=== PATIENT | male | born 1950 | race Caucasian/White ===

== ENCOUNTER → 2017-07-24 | Outpatient (CLI) | payer MEDICARE, BC ==
--- NOTE | 2017-08-05 11:11 | ONC ---
[place] [address] RADIATION ONCOLOGY NOTE Name: KIMANICHAVEZ Apolinar Room: [facility]#: [id number] Admission: 07/24/17 Attend Phys: Chase Wilburn MD Discharge: Date of : 48 Report #: [id number] THIS REPORT FOR: //name// CC: Lalo Pope MD DATE OF SERVICE: 07/24/2017 REFERRING PHYSICIANS: Lalo Shea MD; Sivan Pope MD; Jean Wilson MD; and Sal Pérez MD. [facility] phone is [phone]. 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 He received definitive radiation therapy. The radiation therapy was completed on 04/28/2015. He also had a melanoma resected from the right shoulder on 12/20/2015 which had a depth of about 0.35 mm and the margins were not involved with cancer. 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 He had a history of right breast cancer after mastectomy in 1998. INTERVAL NOTE: The patient's voice quality is good. He is eating well. He is swallowing well. He denied having any palpable masses involving the right shoulder. He denied having any palpable masses involving the right chest wall. He denied having any lesions involving the cheek. MEDICATIONS: The patient is taking 125 mcg of levothyroxine per day. SOCIAL HISTORY: Cigarettes: The patient does not smoke cigarettes. REVIEW OF SYSTEMS: RESPIRATORY: Breathing was fine. He was not short of breath. GASTROINTESTINAL: He has a good appetite. PHYSICAL EXAMINATION: VITAL SIGNS: The patient weighed 224.6 pounds on 07/24/2017 and 223.2 pounds on 01/18/2017. On 07/24/2017, blood pressure was 131/82, pulse 76. LYMPH NODES: He had no palpable cervical or supraclavicular lymphadenopathy. HEAD, EYES, EARS, NOSE AND THROAT: Mouth had no suspicious visible lesions. There were no suspicious palpable lesions in the mouth. On nasopharyngolaryngoscopy, after administration of a small amount of 2% viscous lidocaine orally and 2% viscous lidocaine into the left nostril, [place] [address] RADIATION ONCOLOGY NOTE Name: CHAVEZ HARMAN Room: [facility]#: [id number] Admission: 07/24/17 Attend Phys: Chase Wilburn MD Discharge: Date of : 48 Report #: [id number] visible lesions in the nasopharynx. There were no visible lesions in the posterior oropharynx. The true vocal cords were normally mobile bilaterally without any visible lesions. HEART: Had a regular rate and rhythm without murmur. LUNGS: were clear to auscultation. CHEST WALL: There were no palpable masses in the right chest wall area. There were no palpable masses in the left chest wall area. SKIN: There were no suspicious visible lesions in the shoulder areas or cheek areas. LABORATORY DATA: The patient had a TSH done on 06/06/2017, which was 2.834, which was within normal limits on his present dose of 125 mcg of levothyroxine. ASSESSMENT AND PLAN: 1. History of laryngeal cancer- There is no evidence of laryngeal cancer at this time. The patient was asked to schedule a follow up appointment to see me in about 6 months. 2. Hypothyroidism- The patient's TSH is within normal limits on his present dose of 125 mcg of levothyroxine per day. He was given a refill for his 125 mcg of levothyroxine. He also had a requisition written for TSH in about 6 months and he was asked to schedule a follow up appointment to see me afterwards. 3. History of resected melanoma from the right shoulder- When it was resected, the melanoma had a depth of about 0.35 mm and the margins were not involved with cancer. The resection was on 12/20/2015. The patient had no suspicious palpable masses involving the right shoulder. 4. 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 5. History of right breast cancer after mastectomy in 1998- He had no palpable masses in the right chest wall area or the left chest wall area. There was no axillary lymphadenopathy. There is no evidence of breast cancer. He was asked to schedule a follow up appointment with me in about 6 months. Thank you for allowing me to participate in the care of this patient. <ELECTRONICALLY SIGNED> By: Chase Wilburn MD 08/05/17 1111 1035 1120Chase Wilburn MD /nt
--- NOTE | 2017-08-05 11:11 | ONC ---
[place] [address] RADIATION ONCOLOGY NOTE Name: CHAVEZ HARMAN Room: [facility]#: [id number] Admission: 07/24/17 Attend Phys: Chase Wilburn MD Discharge: Date of : 48 Report #: [id number] THIS REPORT FOR: //name// CC: Lalo Pope MD DATE OF PROCEDURE: 07/24/2017 REFERRING PHYSICIANS: Include: 1. Lalo Shea MD 2. Sivan Pope MD 3. Sal Pérez MD 4. Jean Wilson MD [facility] phone is [phone]. 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 He received definitive radiation therapy. The radiation therapy was completed on 04/28/2015. PROCEDURE: Nasopharyngolaryngoscopy. FINDINGS: On nasopharyngolaryngoscopy, after the patient was given a small amount of 2% viscous lidocaine orally and 2% viscous lidocaine administered in the left nostril using a cotton swab, there were no visible lesions in the nasopharynx. There were no visible lesions in the posterior oropharynx. The true vocal cords were normally mobile bilaterally without any visible lesions. There was no evidence of laryngeal cancer. Thank you for allowing me to participate in the care of this patient. <ELECTRONICALLY SIGNED> By: Chase Wilburn MD 08/05/17 1111 1025 1048Chase Wilburn MD /nt
== END ==
LOC: M.RTH 02:09
DX: Z08 Encounter for follow-up examination after completed treatment for malignant neoplasm (principal); E03.9 Hypothyroidism, unspecified; Z85.21 Personal history of malignant neoplasm of larynx; Z85.3 Personal history of malignant neoplasm of breast

== ENCOUNTER → 2018-01-03 | Outpatient (CLI) | payer MEDICARE, BC ==
--- NOTE | 2018-01-12 12:46 | ONC ---
[place] [address] RADIATION ONCOLOGY NOTE Name: CHAVEZ HARMAN Room: [facility]#: [id number] Admission: 01/03/18 Attend Phys: Chase Wilburn MD Discharge: Date of : 48 Report #: [id number] THIS REPORT FOR: //name// CC: Lalo Pope MD DATE OF PROCEDURE: 01/03/2018 REFERRING PHYSICIANS: Lalo Shea MD; Jean Wilson MD; Sal Pérez MD and Sivan Pope MD [facility] phone is [phone]. 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 He received definitive radiation therapy. The radiation therapy was completed on 04/28/2015. PROCEDURE: Nasopharyngolaryngoscopy. FINDINGS: On nasopharyngolaryngoscopy, after the patient was given a small amount of 2% viscous lidocaine orally and 2% viscous lidocaine administered in the left nostril using a cotton swab, there were no visible lesions in the nasopharynx. There were no visible lesions in the posterior oropharynx. The true vocal cords were normally mobile bilaterally without any visible lesions. There was no evidence of laryngeal cancer. Thank you for allowing me to participate in the care of this patient. <ELECTRONICALLY SIGNED> By: Chase Wilubrn MD 01/12/18 1246 1256 0006Chase Wilburn MD /nt
--- NOTE | 2018-01-12 13:00 | ONC ---
[place] [address] RADIATION ONCOLOGY NOTE Name: KIMANICHAVEZ Apolinar Room: [facility]#: [id number] Admission: 01/03/18 Attend Phys: Chase Wilburn MD Discharge: Date of : 48 Report #: [id number] THIS REPORT FOR: //name// CC: Lalo Pope MD DATE OF SERVICE: 01/03/2018 RADIATION ONCOLOGY FOLLOWUP NOTE REFERRING PHYSICIANS: Lalo Shea MD; Jean Wilson MD; Sal Pérez MD and Sivan Pope MD. [facility] phone is [phone]. 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 He received definitive radiation therapy. The radiation therapy was completed on 04/28/2015. He also had a melanoma resected from the right shoulder on 12/20/2015 which had a depth of about 0.35 mm and the margins were not involved with cancer. 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 He also had a history of right breast cancer after mastectomy in 1998. INTERVAL NOTE: The patient's voice quality is good. He denied having any areas of concern on his right shoulder. He denied having any palpable masses involving the right chest wall. He denied having lesions in his mouth. MEDICATIONS: He takes 125 mcg of levothyroxine per day. SOCIAL HISTORY: Cigarettes: The patient does not smoke cigarettes. REVIEW OF SYSTEMS: RESPIRATORY: The patient's breathing was fine. He was not short of breath. GASTROINTESTINAL: He has a good appetite. PHYSICAL EXAMINATION: VITAL SIGNS: The patient weighed 225.8 pounds on 01/03/2018 and he was 224.6 pounds on 07/24/2017. LYMPH NODES: He had no palpable cervical or supraclavicular lymphadenopathy. HEAD, EYES, EARS, NOSE AND THROAT: Mouth had no suspicious visible lesions or suspicious palpable lesions in the mouth. On nasopharyngolaryngoscopy, after administration of a small amount of 2% viscous lidocaine orally and 2% [place] [address] RADIATION ONCOLOGY NOTE Name: CHAVEZ HARMAN Room: [facility]#: [id number] Admission: 01/03/18 Attend Phys: Chase Wilburn MD Discharge: Date of : 48 Report #: [id number] lidocaine to the left nostril, there were no visible lesions in the posterior pharynx. The true vocal cords were normally mobile bilaterally without any visible lesions. MUSCULOSKELETAL: Right shoulder had no palpable masses. Chest wall, there were no palpable masses in the right chest wall. There were no palpable masses in the left chest area. There was no palpable axillary lymphadenopathy on the right side or the left side. HEART: Had a regular rate and rhythm without murmur. LUNGS: were clear to auscultation. LABORATORY DATA: The patient's TSH was 3.88, which was within normal limits on his present dose of 125 mcg of levothyroxine per day. ASSESSMENT AND PLAN: 1. History of laryngeal cancer- There is no evidence of laryngeal cancer at this time. The patient was asked to schedule a follow up appointment to see me in about 6 months. 2. Hypothyroidism. The patient's TSH is within normal limits on his present dose of 125 mcg of levothyroxine per day. He was given a refill for his 125 mcg of levothyroxine. He was also given a requisition for TSH in about 6 months and the patient was asked to schedule a follow up appointment to see me afterwards. 3. History of resected melanoma from the right shoulder- There was no evidence of any lesion at that time. He says he is going to be seeing his sap basis administrator in about 2 weeks for a skin check. He was asked to schedule a follow up appointment to see me in about 6 months. 4. 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 So there is no evidence of disease. 5. History of right breast cancer after mastectomy in 1998- He had no evidence of breast cancer at this time. He was asked to schedule a follow up appointment to see me in about 6 months. Thank you for allowing me to participate in the care of this patient. <ELECTRONICALLY SIGNED> By: Chase Wilburn MD 01/12/18 1300 1301 2348Chase Wilburn MD /nt
== END | disposition home or self-care (01) ==
LOC: M.RTH 02:33
DX: Z85.21 Personal history of malignant neoplasm of larynx (principal); E03.9 Hypothyroidism, unspecified; Z85.828 Personal history of other malignant neoplasm of skin; Z88.0 Allergy status to penicillin

== ENCOUNTER → 2018-07-09 | Outpatient (CLI) | payer MEDICARE, BC ==
--- NOTE | ~2018-07-09 | ONC ---
[place] [address] RADIATION ONCOLOGY NOTE Name: KIMANICHAVEZ Apolinar Room: [facility]#: [id number] Admission: 07/09/18 Attend Phys: Chase Wilburn MD Discharge: Date of : 48 Report #: [id number] THIS REPORT FOR: //name// CC: Lalo Wilburn DATE OF SERVICE: 07/09/2018 REFERRING PHYSICIANS: Lalo Shea MD; Jean Wilson MD from Dermatology, Sal Pérez MD and Sivan Pope MD. [facility] phone is [phone]. PRIMARY SITE AND HISTOPATHOLOGY: The patient has a stage 1 moderately differentiated squamous cell carcinoma of the larynx. He received definitive radiation therapy. The radiation therapy was completed on 04/28/2015. He also had a melanoma resected from the right shoulder on 12/20/2015, which had a depth of about 0.35 mm and the margins were not involved with cancer. He had a squamous cell carcinoma in situ also resected from the right cheek. He also has a history of right breast cancer after mastectomy in 1998. INTERVAL NOTE: The patient's voice quality is good. He is able to eat a regular diet. He indicates he has no swallowing problems. He says that he sees his cuff setter lockstitch twice a year for skin check to make sure there is no other recurrence of the skin cancer or melanoma. He denied having any palpable masses in the chest area. MEDICATIONS: Levothyroxine 125 mcg per day, he also takes Zantac as needed and vitamin C. SOCIAL HISTORY: Cigarettes: The patient does not smoke cigarettes. REVIEW OF SYSTEMS: RESPIRATORY: The patient's breathing was normal. He was not short of breath. GASTROINTESTINAL: He has a good appetite. PHYSICAL EXAMINATION: VITAL SIGNS: The patient weighed 224.6 pounds today, he was 225.8 pounds on 01/03/2018. On 07/09/2018, blood pressure is 144/91, oxygen saturation 95%, pulse 67, respirations 18. LYMPH NODES: He had no palpable cervical, supraclavicular or axillary lymphadenopathy. HEAD, EYES, EARS, NOSE AND THROAT: Mouth had no suspicious visible lesions or suspicious palpable lesions. On nasopharyngolaryngoscopy, after administration of a small amount of 2% viscous lidocaine orally and 2% viscous lidocaine to the left nostril, there were no visible lesions in the nasopharynx [place] [address] RADIATION ONCOLOGY NOTE Name: CHAVEZ HARMAN Room: [facility]#: [id number] Admission: 07/09/18 Attend Phys: Chase Wilburn MD Discharge: Date of : 48 Report #: [id number] oropharynx. The true vocal cords were normally mobile bilaterally without any visible lesions. MUSCULOSKELETAL: The right shoulder had no palpable mass. CHEST WALL: There were no palpable masses in the right chest wall. There were no palpable masses in the left chest area and there was no palpable axillary lymphadenopathy. HEART: Had a regular rate and rhythm without murmur. LUNGS: Clear to auscultation. LABORATORY DATA: The patient had a TSH on 04/23/2018, which was 3.02, which was within normal limits on his present dose of 125 mcg of levothyroxine per day. His sodium was 140, potassium 3.8, BUN was 15, creatinine 0.96. ASSESSMENT AND PLAN: 1. History of laryngeal cancer. There is no evidence of laryngeal cancer at this time. The patient was asked to schedule a followup appointment to see me in about 6 months. 2. Hypothyroidism. The patient's TSH was within normal limits on his present dose of 125 mcg of levothyroxine per day. He was given a refill for his 125 mcg levothyroxine and he was also given a requisition for TSH in about 6 months. He is asked to follow up with me afterwards. 3. History of resected melanoma of the right shoulder. There was no evidence of any lesion at this time. He says he sees his cuff setter lockstitch about twice a year for skin check. 4. Squamous cell carcinoma in situ of the right cheek. There is no evidence of any lesions in that area and again he sees his cuff setter lockstitch about twice a year for skin check and he was asked to schedule a followup appointment to see me in about 6 months. 5. History of right breast cancer after mastectomy in 1998. There is no evidence of breast cancer at this time. He is asked to schedule a followup appointment to see me in about 6 months. Thank you for allowing me to participate in the care of this patient. By: [id number] Wilburn MD /yajaira
--- NOTE | ~2018-07-09 | ONC ---
[place] [address] RADIATION ONCOLOGY NOTE Name: KIMANICHAVEZ Apolinar Room: [facility]#: [id number] Admission: 07/09/18 Attend Phys: Cahse Wilburn MD Discharge: Date of : 48 Report #: [id number] THIS REPORT FOR: //name// CC: Lalo Wilburn DATE OF SERVICE: 07/09/2018 REFERRING PHYSICIANS: Lalo Shea MD; Jean Wilson MD, from Dermatology; Sal Pérez MD and Sivan Pope MD. [facility] phone is [phone]. PRIMARY SITE AND HISTOPATHOLOGY: The patient has stage I, moderately differentiated squamous cell carcinoma of the larynx, received definitive radiation therapy. The radiation therapy was completed on 04/28/2015. PROCEDURE: Nasopharyngolaryngoscopy. FINDINGS: On nasopharyngolaryngoscopy, after the patient was given a small amount of 2% viscous lidocaine orally and 2% viscous lidocaine in the left nostril using cotton swab, there were no visible lesions in the nasopharynx and no visible lesions in the posterior oropharynx. True vocal cords were normally mobile bilaterally without any visible lesions. There was no evidence of laryngeal cancer. Thank you for allowing me to participate in the care of this patient. By: 1026 140MD perico Keene
== END ==
LOC: M.RTH 04:33
DX: Z08 Encounter for follow-up examination after completed treatment for malignant neoplasm (principal); E03.9 Hypothyroidism, unspecified; C44.329 Squamous cell carcinoma of skin of other parts of face; Z85.21 Personal history of malignant neoplasm of larynx; Z85.3 Personal history of malignant neoplasm of breast; Z85.820 Personal history of malignant melanoma of skin

== ENCOUNTER → 2019-01-16 | Outpatient (CLI) | payer MEDICARE, BC ==
--- NOTE | ~2019-01-16 | ONC ---
[place] [address] RADIATION ONCOLOGY NOTE Name: CHAVEZ HARMAN Room: [facility]#: [id number] Admission: 01/16/19 Attend Phys: Chase Wilburn MD Discharge: Date of : 48 Report #: [id number] THIS REPORT FOR: //name// CC: Lalo Wilburn DATE OF SERVICE: 01/16/2019 RADIATION ONCOLOGY FOLLOWUP NOTE REFERRING PHYSICIANS: Lalo Shea MD; Jean Wilson MD; Sal Pérez MD; Sivan Pope MD. [facility] phone number is [phone]. PRIMARY SITE AND HISTOPATHOLOGY: The patient has stage 1 moderately differentiated squamous cell carcinoma of the larynx. He received definitive radiation therapy. The radiation therapy was completed on 04/28/2015. He also had a melanoma resected from the right shoulder on 12/20/2015, which had a bit depth of about 0.35 mm with clear margins after resection. He has a squamous cell carcinoma in situ resected from the right cheek around 2014. He also has a history of right breast cancer after mastectomy in 1998. INTERVAL NOTE: The patient's voice quality is good. He is able to eat a regular diet. He says he can swallow well. He denied having any recurrence, denied having any lesions in the area of the shoulder. He did not have any palpable masses in the chest area. MEDICATIONS: A 125 mcg of levothyroxine per day. He also takes Zantac as needed. SOCIAL HISTORY: Cigarettes: The patient does not smoke cigarettes. REVIEW OF SYSTEMS: RESPIRATORY: The patient's breathing was normal. He was not short of breath. GASTROINTESTINAL: He has a good appetite. PHYSICAL EXAMINATION: VITAL SIGNS: The patient weighed 219.2 pounds on 01/16/2019, 224.6 pounds on 07/09/2018, and on 01/16/2019, blood pressure is 134/87, pulse 63, respirations 18, oxygen saturation 100 percent. LYMPH NODES: He had no palpable cervical or supraclavicular or axillary lymphadenopathy. HEAD, EYES, EARS, NOSE, AND THROAT: Mouth had no suspicious visible lesions or suspicious palpable lesions. On nasopharyngolaryngoscopy after administration of a small amount of 2% viscous lidocaine orally and 2% [place] [address] RADIATION ONCOLOGY NOTE Name: CHAVEZ HARMAN Room: [facility]#: [id number] Admission: 01/16/19 Attend Phys: Chase Wilburn MD Discharge: Date of : 48 Report #: [id number] left nostril, there were no visible lesions in the nasopharynx or posterior oropharynx. True vocal cords are normally mobile bilaterally without any visible lesions. MUSCULOSKELETAL: The right shoulder had palpable masses. CHEST WALL: There were no palpable masses in the right chest wall or the left breast area. HEART: Had a regular rate and rhythm without murmur. LUNGS: Clear to auscultation. LABORATORY DATA: From 10/22/2018, TSH was 2.79 which is within normal limits on his present dose of 125 mcg of levothyroxine per day. ASSESSMENT AND PLAN: 1. History of laryngeal cancer. There is no evidence of laryngeal cancer at this time. The patient was asked to follow up with me in about 8 months. 2. Hypothyroidism. The patient's TSH was within normal limits on his present dose of 125 mcg of levothyroxine per day. He was given a refill for his 125 mcg of levothyroxine and a requisition for a TSH in about 8 months. He is asked to schedule a followup appointment to see me afterwards. 3. History of resected melanoma of the right shoulder. There is no evidence of any lesion at this time and he says he sees his manager group home about twice a year for skin check. 4. Squamous cell carcinoma in situ of right cheek. There is no evidence of any lesions in that area and again he sees his manager group home about twice a year for that area for that issue. 5. History of right breast cancer after mastectomy in 1998. There is no evidence of breast cancer at this time. He is asked to schedule a followup appointment to see me in about 8 months. Thank you for allowing me to participate in the care of this patient. By: [id number] [id number] Wilburn MD /yajaira
--- NOTE | ~2019-01-16 | ONC ---
[place] [address] RADIATION ONCOLOGY NOTE Name: CHAVEZ HARMAN Room: [facility]#: [id number] Admission: 01/16/19 Attend Phys: Chase Wilburn MD Discharge: Date of : 48 Report #: [id number] THIS REPORT FOR: //name// CC: Lalo Wilburn DATE OF SERVICE: 01/16/2019 REFERRING PHYSICIANS: Dr Shea; Dr. Medina; Sal Pérez MD; Sivan Pope MD [facility] phone is [phone]. PRIMARY SITE AND HISTOPATHOLOGY: The patient has stage 1 moderately differentiated squamous cell carcinoma of the larynx and received definitive radiation therapy. The radiation therapy was completed on 04/28/2015. PROCEDURE: Nasopharyngolaryngoscopy. FINDINGS: On nasopharyngolaryngoscopy, after the patient was given a small amount of 2% viscous lidocaine orally, 2% viscous lidocaine to left nostril using cotton swab, there were no visible lesions in the nasopharynx, no visible lesions in the posterior pharynx. The true vocal cords were normally mobile bilaterally without any visible lesions. There is no evidence of laryngeal cancer. Thank you for allowing me to participate in the care of this patient. By: 1614 0429MD perico Villareal
== END ==
LOC: M.RTH 01-09 09:30
DX: Z08 Encounter for follow-up examination after completed treatment for malignant neoplasm (principal); Z85.21 Personal history of malignant neoplasm of larynx

== ENCOUNTER 2019-08-24 10:36 | Emergency (ER) | payer MEDICARE, BC ==
[~2019-08-24] VITALS: Ht 175.3 cm; Wt 102.1 kg
--- NOTE | ~2019-08-24 | EKG ---
[place] [address] ELECTROCARDIOGRAM REPORT Name: CHAVEZ HARMAN Room: [facility]#: [id number] Admission: 08/24/19 Attend Phys: Discharge: 08/24/19 Date of : 48 Date of Service: 08/24/19 1153 Report #: [id number] THIS REPORT FOR: cc: Lalo Shea MD, Bruce D. 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
[2019-08-24] MEDS ORDERED: LEVO-T25 MCG PO (10:49)
[2019-08-24] MEDS ORDERED: PROSTATE MED (10:50)
[2019-08-24 11:28] LABS: HEMATOCRIT 51.2 % (42.0-52.0); HEMOGLOBIN 17.5 gm/dL (14.0-18.0); MCH 29.5 pg (26.0-34.0); MCHC 34.3 g/dL (28.0-37.0); MCV 85.9 fL (80.0-100.0); MPV 9.8 fl. (7.2-11.1); NUCLEATED RBCS 0 /100WBC; PLATELET COUNT* 277 thou/uL (150-400); RBC 5.96 mil/uL (4.50-6.00); RDW-CV 14.2 % (10.5-14.5); WBC 16.1 thou/uL (4.0-11.0)
[2019-08-24 11:31] LABS: URINE BILIRUBIN NEGATIVE (Negative); URINE BLOOD 2+ (Negative); URINE CLARITY CLEAR; URINE COLOR YELLOW; URINE GLUCOSE-RANDOM NEGATIVE (Negative); URINE KETONES NEGATIVE (Negative); URINE LEUKOCYTES-REFLEX NEGATIVE (Negative); URINE NITRITE-REFLEX NEGATIVE (Negative); URINE PROTEIN TRACE (Negative); URINE SPECIFIC GRAVITY >= 1.030 (1.005-1.030); URINE UROBILINOGEN 0.2 E.U./dl (0.2-1.0)
[2019-08-24 11:48] LABS: CALCIUM 8.8 mg/dL (8.5-10.1); CREATININE 1.2 mg/dL (0.6-1.3); POTASSIUM 3.6 mmol/L (3.5-5.1)
[2019-08-24 11:52] LABS: ALBUMIN 3.9 g/dL (3.4-5.0); MAGNESIUM 1.8 mg/dL (1.8-2.4); TOTAL BILIRUBIN 0.9 mg/dL (<0.1-1.0); TOTAL PROTEIN 8.5 g/dL (6.4-8.2)
[2019-08-24 11:53] LABS: BACTERIA-REFLEX 1-9 Few /HPF (None Seen); CASTS None Seen /LPF (None Seen); CRYSTALS None Seen /LPF (None Seen); MUCUS >6 Heavy strn/LPF (None Seen); SQUAMOUS 4-10 Moderate /LPF (0-3); URINE RBC 3-10 Few /HPF (0-2); URINE WBC-REFLEX 0-5 Rare /HPF (0-5)
[2019-08-24 11:57] LABS: ABSOLUTE LYMPHOCYTES 0.3 thou/uL (0.8-5.3); ABSOLUTE MONOCYTES 0.2 thou/uL (0.0-1.2); ABSOLUTE NEUTROPHILS 15.6 thou/uL (1.6-8.1); ANISOCYTOSIS 1+; LARGE PLATELETS RARE; PLATELET ESTIMATE ADEQUATE; POIKILOCYTOSIS 1+
[2019-08-24 12:08] LABS: INFLUENZA A ANTIGEN Negative (Negative); INFLUENZA B ANTIGEN Negative (Negative)
[2019-08-24] MEDS ORDERED: ONDANSETRON HCL4 M2 PO (12:32)
[2019-08-24 14:02] VITALS: BP 123/83
== END 2019-08-24 14:02 | disposition home or self-care (01) ==
LOC: M.ERS 10:36
PROVIDERS: Nurse Practitioner Family
DX: K52.9 Noninfective gastroenteritis and colitis, unspecified (principal); E03.9 Hypothyroidism, unspecified; Z85.21 Personal history of malignant neoplasm of larynx

== ENCOUNTER → 2019-09-18 | Outpatient (CLI) | payer MEDICARE, BC ==
[~2019-09-18] MED LIST: LEVO-T25 MCG PO; ONDANSETRON HCL4 M2 PO; PROSTATE MED
--- NOTE | 2019-09-19 17:27 | ONC ---
[place] [address] RADIATION ONCOLOGY NOTE Name: KIMANICHAVEZ Apolinar Room: [facility]#: [id number] Admission: 09/18/19 Attend Phys: Chase Wilburn MD Discharge: Date of : 48 Report #: [id number] THIS REPORT FOR: //name// CC: Lalo Wilburn MD DATE OF PROCEDURE: 09/18/2019 PROCEDURE NOTE REFERRING PHYSICIANS: Lalo Shea MD; Jean Medina MD; Sal Pérez MD and Sivan Pope MD [facility] phone is [phone]. PRIMARY SITE AND HISTOPATHOLOGY: The patient had a stage I, moderately differentiated squamous cell carcinoma of the larynx, and he received definitive radiation therapy. The radiation therapy was completed on 04/28/2015. He also had a melanoma resected from the right shoulder on 12/20/2015, which had a depth of about 0.35 mm with clear margins after resection. 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 He also had a history of right breast cancer after mastectomy in 1998. PROCEDURE: Nasopharyngolaryngoscopy. FINDINGS: On nasopharyngolaryngoscopy, after the patient was given a small amount of 2% viscous lidocaine orally and to the left nostril using a cotton swab; there were no visible lesions in the nasopharynx. There were no visible lesions in the posterior pharynx. There were no visible lesions involving the true vocal cords. The true vocal cords were normally mobile bilaterally without any visible lesions. There was no evidence of laryngeal cancer. Thank you for allowing me to participate in the care of this patient. <ELECTRONICALLY SIGNED> By: Chase Wilburn MD 09/19/19 1727 [id number] Wilburn MD /nt
--- NOTE | 2019-09-19 18:39 | ONC ---
[place] [address] RADIATION ONCOLOGY NOTE Name: KIMANICHAVEZ Apolinar Room: [facility]#: [id number] Admission: 09/18/19 Attend Phys: Chase Wilburn MD Discharge: Date of : 48 Report #: [id number] THIS REPORT FOR: //name// CC: Lalo Wilburn MD DATE OF SERVICE: 09/18/2019 RADIATION ONCOLOGY FOLLOWUP NOTE REFERRING PHYSICIANS: Lalo Shea MD; Jean Wilson MD; Sal Pérez MD; Sivan Pope MD [employer] [facility] phone number is [phone]. 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 He received definitive radiation therapy. The radiation therapy was completed on 04/28/2015. He also had a melanoma resected from the right shoulder on 12/20/2015, which a depth of about 0.35 mm with clear margins after resection. 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 He also had a history of right breast cancer after mastectomy in 1998. INTERVAL NOTE: The patient has a good voice quality. He is able to eat a regular diet. He swallows well. He denied having any palpable masses in the chest area. He denied having any lesions in the area of the shoulder. MEDICATIONS: 125 mcg of levothyroxine per day. SOCIAL HISTORY: Cigarettes: The patient does not smoke cigarettes. REVIEW OF SYSTEMS: RESPIRATORY: The patient's breathing was normal. He was not short of breath. GASTROINTESTINAL: He has a good appetite. PHYSICAL EXAMINATION: VITAL SIGNS: The patient weighed 219.2 pounds on 09/18/2019, he was 219.2 pounds on 01/16/2019 and on 09/18/2019 his blood pressure was 110/88, pulse 78, respirations 16. LYMPH NODES: He had no palpable cervical or supraclavicular lymphadenopathy. HEAD, EYES, EARS, NOSE AND THROAT: Mouth had no suspicious visible lesions or suspicious palpable lesions. On nasopharyngolaryngoscopy, after administration of a small amount of 2% viscous lidocaine orally and 2% viscous lidocaine to the left nostril, [place] [address] RADIATION ONCOLOGY NOTE Name: CHAVEZ HARMAN Room: [facility]#: [id number] Admission: 09/18/19 Attend Phys: Chase Wilburn MD Discharge: Date of : 48 Report #: [id number] there were no visible lesions in the nasopharynx or posterior oropharynx.The true vocal cords were normally mobile bilaterally without any visible lesions. MUSCULOSKELETAL: The right shoulder had no palpable masses. CHEST WALL: There were no palpable masses in the right chest wall or left breast area. HEART: Had a regular rate and rhythm without murmur. LUNGS: were clear to auscultation. LABORATORY DATA: From 08/24/2019, TSH was elevated at 8.53 on his present dose of 125 mcg of levothyroxine.He had a white blood count on 08/24/2019, which was 16.1. He said he was recovering from influenza, so his white count was elevated at that time. Hemoglobin was 17.5, platelets were 277,000. Sodium was 140, potassium 3.6, BUN 20, creatinine 1.2. ASSESSMENT AND PLAN: 1. History of laryngeal cancer- There is no evidence of laryngeal cancer at this time. The patient was asked to schedule a follow up appointment with me in about 8 months. 2. Hypothyroidism- The patient's TSH was elevated with him taking 125 mcg of levothyroxine and his levothyroxine was increased to 137 mcg per day and TSH was ordered in about 8 months. He was asked to follow up with me afterwards. 3. History of resected melanoma of the right shoulder- There is no evidence of any lesion at this time and he continues to follow up with his machinist helper marine about twice a year. 4. 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 He continues to follow up with his machinist helper marine about twice a year. 5. History of right breast cancer after mastectomy in 1998- There is no evidence of breast cancer at this time. He was asked to schedule a follow up appointment with me in about 8 months. Thank you for allowing me to participate in the care of this patient. <ELECTRONICALLY SIGNED> By: Chase Wilburn MD 09/19/19 1839 [id number] [id number] Wilburn MD /nt
== END ==
LOC: M.RTH 04:14
DX: Z08 Encounter for follow-up examination after completed treatment for malignant neoplasm (principal); E03.9 Hypothyroidism, unspecified; Z85.21 Personal history of malignant neoplasm of larynx

== ENCOUNTER → 2020-06-10 | Outpatient (CLI) | payer MEDICARE, BC ==
--- NOTE | ~2020-06-10 | ONC ---
[place] [address] RADIATION ONCOLOGY NOTE Name: CHAVEZ HARMAN Room: [facility]#: [id number] Admission: 06/10/20 Attend Phys: Chase Wilburn MD Discharge: Date of : 48 Report #: [id number] THIS REPORT FOR: //name// CC: Lalo Wilburn DATE OF SERVICE: 06/10/2020 PROCEDURE NOTE REFERRING PHYSICIANS: Lalo Shea MD; Jean Wilson MD; Sal Pérez MD; Sivan Pope MD [facility] patient. [place] [facility] phone is [phone]. PRIMARY SITE AND HISTOPATHOLOGY: The patient has stage 1, moderately differentiated squamous cell carcinoma of the larynx and he received definitive radiation therapy. The radiation therapy was completed on 04/28/2015. He also had a melanoma resected from the right shoulder on 12/20/2015, which had a depth of about 0.35 mm with clear margins after resection. 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 PROCEDURE: Nasopharyngolaryngoscopy. FINDINGS: On nasopharyngolaryngoscopy, after the patient was given a small amount of 2% viscous lidocaine orally and to the left nostril, using a cotton swab, there were no visible lesions in the nasopharynx. There were no visible lesions in the posterior oropharynx. There were no visible lesions involving the true vocal cords. The true vocal cords were normally mobile bilaterally without any visible lesions. There was no evidence of laryngeal cancer. Thank you for allowing me to participate in the care of this patient. By: [id number] Wilburn MD /nt
--- NOTE | ~2020-06-10 | ONC ---
[place] [address] RADIATION ONCOLOGY NOTE Name: KIMANICHAVEZ Apolinar Room: [facility]#: [id number] Admission: 06/10/20 Attend Phys: Chase Wilburn MD Discharge: Date of : 48 Report #: [id number] THIS REPORT FOR: //name// CC: Lalo Wilburn DATE OF SERVICE: 06/10/2020 RADIATION ONCOLOGY FOLLOWUP NOTE REFERRING PHYSICIANS: Dr. Lalo Shea, Jean Wilson MD; Sal Pérez MD; and Sivan Pope MD [facility] phone is [phone]. PRIMARY SITE AND HISTOPATHOLOGY: The patient has stage 1 moderately differentiated squamous cell carcinoma of the larynx. He received definitive radiation therapy. The radiation therapy was completed on 04/28/2015. He also had a melanoma resected from the right shoulder on 12/20/2015, which had a depth of about 0.35 mm with clear margins after resection. 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 He also had a history of right breast cancer after mastectomy in 1998. INTERVAL NOTE: The patient has a good voice quality. He has been trying to voluntarily lose weight. He denied having any palpable masses in the chest area. He denied having any lesions in the area of the shoulder or the cheek. MEDICATIONS: 125 mcg of levothyroxine per day. SOCIAL HISTORY: Cigarettes: The patient does not smoke cigarettes. REVIEW OF SYSTEMS: RESPIRATORY: The patient's breathing was normal. He was not short of breath. GASTROINTESTINAL: He has a good appetite. PHYSICAL EXAMINATION: VITAL SIGNS: The patient weighed 211.2 pounds on 06/10/2020 and he was 219.2 pounds on 09/18/2019 and on 06/10/2020 blood pressure was 138/82, pulse 61, respirations 20, oxygen saturation 97%, and temperature 97.6 degrees Fahrenheit. LYMPH NODES: The patient had no palpable cervical or supraclavicular lymphadenopathy. HEAD, EYES, EARS, NOSE AND THROAT: Mouth had no suspicious visible lesions or suspicious palpable lesions. On nasopharyngolaryngoscopy, after administration of a small amount of 2% viscous lidocaine orally and 2% viscous lidocaine to the left nostril, there were no visible lesions in the nasopharynx or posterior oropharynx. The true vocal cords were normally mobile [place] [address] RADIATION ONCOLOGY NOTE Name: CHAVEZ HARMAN Room: [facility]#: [id number] Admission: 06/10/20 Attend Phys: Chase Wilburn MD Discharge: Date of : 48 Report #: [id number] visible lesions. MUSCULOSKELETAL: The right shoulder and left shoulder had no palpable masses. Chest wall, there were no palpable masses in the right chest wall or left chest wall. There was no axillary lymphadenopathy. HEART: Had a regular rate and rhythm without murmur. LUNGS: Clear to auscultation. LABORATORY DATA: The patient's TSH was 3.67, from [facility] from 06/03/2020, it is within normal range at 0.4 to 4.5, so it is within normal range with him taking 137 mcg of levothyroxine per day. ASSESSMENT AND PLAN: 1. History of laryngeal cancer. There is no evidence of laryngeal cancer at this time. The patient was asked to schedule a followup appointment with me in about 1 year. 2. Hypothyroidism. The patient's TSH was within normal limits with him taking 137 mcg of levothyroxine per day. He was given a refill for 137 mcg of levothyroxine per day and a TSH was ordered in about 1 year and he was asked to schedule a followup appointment to see me afterwards. 3. History of melanoma of the right shoulder. There is no evidence of any lesion in that area at this time. He continues to follow up with his community engagement specialist, Dr. Jean Wilson about twice a year and he is scheduled to see her next month. 4. Squamous cell carcinoma in situ of the right cheek. There is no evidence of any lesion. He continues to follow up with his community engagement specialist about twice a year. 4. History of right breast cancer after mastectomy in 1998. There is no evidence of breast cancer at this time. He was asked to schedule a followup appointment with me in about 1 year. Thank you for allowing me to participate in the care of this patient. By: [id number] Wilburn MD /nt
== END ==
LOC: M.RTH 08:57
PROVIDERS: ATTEND Radiology Radiation Oncology
DX: Z08 Encounter for follow-up examination after completed treatment for malignant neoplasm (principal); E03.9 Hypothyroidism, unspecified; Z85.21 Personal history of malignant neoplasm of larynx; Z92.21 Personal history of antineoplastic chemotherapy